=== PATIENT | male | born 1945 | race Caucasian/White ===

== ENCOUNTER 2020-08-06 12:01 | Outpatient (CLI) | payer MEDICARE, OTHER, SELFPAY ==
--- NOTE | 2020-08-06 12:37 | AMB.MCA ---
Patient Information Referred by: Reji Symptom onset date: 07/31/20 COVID 19 common symptoms: positive fatigue COVID 19 other sytmptoms: negative chest pressure, chest pain, pleuritic pain, requiring oxygen, requiring more oxygen, respiratory distress, cyanosis, lethargy, confusion, new neurological complaints or other concerning symptoms Severity: mild and moderate Treatment prior to arrival: none [facility] COVID test results: No Data to Display outside results available, scanned Criteria/Plan Inclusion/Exclusion Criteria weight >/= 40kg, + direct test </= 10 days ago and symptom onset </= 10 days ago age >/= 65 not requiring hospitalization, not requiring oxygen (if not chronically on oxygen) and no increase oxygen requirement (if chronically on oxygen) Patient education patient/caregiver received/reviewed fact sheet, Emergency Use Authorization/unapproved drug status discussed with patient/caregiver, alternatives to this treatment discussed with patient/caregiver, risks and benefits of medication reviewed with patient/caregiver, patient/caregiver given opportunity for questions, which were answered and patient/caregiver consents to receiving Monoclonal Antibody Treatment Plan for treatment Meets criteria for Monoclonal Antibody infusion Ordering Monoclonal Antibody infusion for today
[2020-08-06 12:39] VITALS: BP 149/92; PULSE 68; RESP 18; TEMP 36.9; O2SAT 99
[2020-08-06 12:40] VITALS: BMI 25.8
[2020-08-06 13:40] VITALS: BP 132/82; PULSE 62; RESP 16; O2SAT 62
[2020-08-06 14:45] VITALS: BP 131/86; PULSE 67; RESP 16; O2SAT 97
[2020-08-06 15:48] VITALS: BP 156/86; PULSE 67; RESP 17; TEMP 36.4; O2SAT 97
[2020-08-06 15:51] VITALS: BP 156/86; PULSE 67; RESP 17; TEMP 36.4; O2SAT 97
--- NOTE | 2020-08-12 13:35 | DCPLANNER ---
Addendum entered by Rachel Montanez 08/18/20 13:54: account manager forest service called to check on patient after getting the BAM infusion. Patients daughter stated that patient is doing just fine, no symptoms. Has not been admitted to hospital anywhere. Original Note: account manager forest service had message that patient received the BAM infusion. account manager forest service called and spoke with patients daughter. Patients daughter stated that patient did not have any symptoms before, was tested because had tested positive, no symptoms before and none after the infusion. Patient is doing good.
== END 2020-08-06 15:53 | disposition home or self-care (01) ==
PROVIDERS: Visit Provider Nurse Practitioner Family
DX: U07.1 COVID-19 (principal)
CPT/HCPCS: 96365; J7050

== ENCOUNTER → 2022-08-15 13:36 | Outpatient (BNVA) | payer MEDICARE, OTHER, SELFPAY | PROVIDERS: Visit Provider Student in an Organized Health Care Education/Training Program | DX: M25.562 Pain in left knee (principal); M17.12 Unilateral primary osteoarthritis, left knee | CPT/HCPCS: 20610; 73560; 73565; 99204; J3301 ==

== ENCOUNTER → 2023-08-08 08:28 | Outpatient (BNVA) | payer MEDICARE, OTHER, SELFPAY | PROVIDERS: PCP Family Medicine; Visit Provider Student in an Organized Health Care Education/Training Program | DX: M17.0 Bilateral primary osteoarthritis of knee; D16.21 Benign neoplasm of long bones of right lower limb | CPT/HCPCS: 73560; 73565; 99214; J3301 ==

== ENCOUNTER → 2023-09-06 08:56 | Outpatient (BNVA) | payer MEDICARE, OTHER, SELFPAY | PROVIDERS: PCP Family Medicine; Referring Provider Family Medicine; Visit Provider Psychiatry & Neurology Neurology | DX: Z86.73 Personal history of transient ischemic attack (TIA), and cerebral infarction without residual deficits (principal); R55 Syncope and collapse; R29.818 Other symptoms and signs involving the nervous system | CPT/HCPCS: 99203 ==

== ENCOUNTER 2023-09-08 12:40 | Outpatient (CLI) | payer MEDICARE, OTHER, SELFPAY ==
--- NOTE | 2023-09-08 13:00 | USCV_ITS ---
Dakota Shaikh Age: 78 Gender: M : 1945 Exam Date: 09/08/2023 13:18 Ordering Phys: Cooper Panchal MD Technologist: CT Exam Location: [facility] [place]_ Indication: Risk Factors: Previous Vascular Surgery: Right Brachial BP: / Left Brachial BP: / Right Left Velocity (cm/s) Spectral Plaque Velocity (cm/s) Spectral Plaque Syst/Diast Broadening Syst/Diast Broadening 96.60/ 18.10 Prox CCA 109.00/ 19.40 78.30/ 16.20 Mid CCA 92.20 / 17.70 78.30/ 18.10 Distal CCA 105.10/ 17.70 47.80/ 12.10 Prox ICA 71.10 / 5.30 65.60/ 16.90 Mid ICA 57.40 / 6.70 69.10/ 16.80 Distal ICA 57.40 / 13.30 96.60 ECA 81.90 0.71 ICA/CCA 0.60 Antegrade Vertebral Antegrade 46.10/ 9.10 cm/s 64.80/ 8.50 cm/s Tri Subclavian Tri FINDINGS Comparison: none available. No significant elevation of systolic or diastolic velocities. Waveforms are normal. Mild plaque at the bifurcations, surface is irregular. Antegrade vertebral arteries. CONCLUSIONS Bilateral ICA stenosis less than 50%. Mild carotid atherosclerosis. Dr. Yasimn Espinal DO (Electronically Signed) Final Date: 09 September 2023 08:27 S
== END 2023-09-08 12:41 | disposition home or self-care (01) ==
LOC: RAD 12:40
PROVIDERS: PCP Family Medicine; Visit Provider Psychiatry & Neurology Neurology
DX: R42 Dizziness and giddiness (principal); R55 Syncope and collapse
CPT/HCPCS: 93880

== ENCOUNTER 2023-10-09 14:39 | Outpatient (CLI) | payer MEDICARE, OTHER, SELFPAY | END 2023-10-09 14:40 | disposition home or self-care (01) | LOC: RAD 14:41 | PROVIDERS: PCP Family Medicine; Visit Provider Psychiatry & Neurology Neurology | DX: R55 Syncope and collapse (principal); R29.818 Other symptoms and signs involving the nervous system; G62.89 Other specified polyneuropathies; Z86.73 Personal history of transient ischemic attack (TIA), and cerebral infarction without residual deficits | CPT/HCPCS: 95812 ==

== ENCOUNTER 2023-10-29 18:17 | Emergency (ER) | payer MEDICARE, OTHER, SELFPAY ==
[2023-10-29 18:18] VITALS: BP 133/76; PULSE 58; RESP 18; TEMP 37.1; O2SAT 98; BMI 32.1
[2023-10-29 18:26] LABS: Glucose Point of Care 142 mg/dL (70-110)
--- NOTE | 2023-10-29 18:49 | CTR_ITS ---
PROCEDURE INFORMATION: Exam: CT Head Without Contrast Exam date and time: 10/29/2023 7:24 PM Age: 78 years old Clinical indication: Stroke-like symptoms; Ataxia; Additional info: Sudden onset of inability to walk with ataxia. History of posterior circulation stroke. TECHNIQUE: Imaging protocol: Computed tomography of the head without contrast. Radiation optimization: All CT scans at this facility use at least one of these dose optimization techniques: automated exposure control; mA and/or kV adjustment per patient size (includes targeted exams where dose is matched to clinical indication); or iterative reconstruction. Other technique: STROKE PROTOCOL was implemented. COMPARISON: No relevant prior studies available. RADIATION DOSE METRICS: Total DLP (mGy-cm): 1045.55 FINDINGS: Brain: No focal hemorrhage or midline shift is identified. The ventricles and parenchyma show moderate atrophy and chronic bicerebral white matter ischemic change. A few scattered old lacunes are likely. Cerebral ventricles: No ventriculomegaly or evidence of hydrocephalus. Paranasal sinuses: The partially assessed sinuses are grossly clear. Mastoid air cells: Visualized mastoid air cells are well aerated. Bones/joints: No displaced skull fracture is noted. Soft tissues: Unremarkable. Vasculature: Diffuse vascular calcifications are present. CT/CT head thrombolytic [id number] IMPRESSION: 1. No acute intracranial hemorrhage. 2. Moderate age-related changes. 3. CTAs pending. ASSESSMENT: ASPECTS (Kayla Stroke Program Early CT Score) is 10.
--- NOTE | 2023-10-29 18:49 | CTR_ITS ---
PROCEDURE INFORMATION: Exam: CTA Head With Contrast, Arteriography Exam date and time: 10/29/2023 7:28 PM Age: 78 years old Clinical indication: Stroke-like symptoms; Ataxia TECHNIQUE: Imaging protocol: Computed tomographic angiography of the head with contrast. Exam focused on the arteries. 3D rendering (Not supervised by radiologist): MIP and/or 3D reconstructed images were created by the technologist. Radiation optimization: All CT scans at this facility use at least one of these dose optimization techniques: automated exposure control; mA and/or kV adjustment per patient size (includes targeted exams where dose is matched to clinical indication); or iterative reconstruction. Contrast material: OMNI 350; Contrast volume: 100 ml; Contrast route: INTRAVENOUS (IV); COMPARISON: CT head thrombolytic [id number] 10/29/2023 7:24 PM RADIATION DOSE METRICS: Total DLP (mGy-cm): 568.62 FINDINGS: ANTERIOR CIRCULATION: Right internal carotid artery: Intracranial segment is patent with no significant stenosis. No aneurysm. Mild cavernous calcified plaque. Right middle cerebral artery: No occlusion or significant stenosis. No aneurysm. Right anterior cerebral artery: No occlusion or significant stenosis. No aneurysm. Left internal carotid artery: Intracranial segment is patent with no significant stenosis. No aneurysm. Mild cavernous calcified plaque. Left middle cerebral artery: No occlusion or significant stenosis. No aneurysm. Left anterior cerebral artery: No occlusion or significant stenosis. No aneurysm. POSTERIOR CIRCULATION: Right vertebral artery: No occlusion or significant stenosis. No aneurysm. Left vertebral artery: No occlusion or significant stenosis. No aneurysm. Basilar artery: No occlusion or significant stenosis. No aneurysm. Right posterior cerebral artery: No occlusion or significant stenosis. No aneurysm. Left posterior cerebral artery: No occlusion or significant stenosis. No aneurysm. Brain: No focal hemorrhage or midline shift identified. Moderate age-related change. Cerebral ventricles: No evidence of ventriculomegaly or hydrocephalus. The ventricles seem age-appropriate. Bones/joints: Unremarkable. No acute fracture. Soft tissues: Unremarkable. PROCEDURE INFORMATION: Exam: CTA Neck With Contrast Exam date and time: 10/29/2023 7:28 PM Age: 78 years old Clinical indication: Stroke-like symptoms; Ataxia TECHNIQUE: Imaging protocol: Computed tomographic angiography of the neck with contrast. Exam focused on the cervical segments of the vasculature. 3D rendering (Not supervised by radiologist): MIP and/or 3D reconstructed images were created by the technologist. Radiation optimization: All CT scans at this facility use at least one of these dose optimization techniques: automated exposure control; mA and/or kV adjustment per patient size (includes targeted exams where dose is matched to clinical indication); or iterative reconstruction. Contrast material: OMNI 350; Contrast volume: 100 ml; Contrast route: INTRAVENOUS (IV); COMPARISON: CT head thrombolytic [id number] 10/29/2023 7:24 PM RADIATION DOSE METRICS: Total DLP (mGy-cm): 568.62 FINDINGS: Right common carotid artery: No stenosis. No dissection or occlusion. Right internal carotid artery: No stenosis of the extracranial segment. No dissection or occlusion. Right external carotid artery: No occlusion or high-grade stenosis identififed. Left common carotid artery: No stenosis. No dissection or occlusion. Left internal carotid artery: No stenosis of the extracranial segment. No dissection or occlusion. Left external carotid artery: No occlusion or high-grade stenosis identififed. Right vertebral artery: No stenosis. No dissection or occlusion. Left vertebral artery: No stenosis. No dissection or occlusion. Soft tissues: No significant soft tissue swelling or other acute finding noted. Bones/joints: No acute fracture. Moderate diffuse DJD. Other findings: Advanced diffuse vascular calcification noted. CT/CT angio headneck* [id number] IMPRESSION: No large vessel stenosis or occlusion. IMPRESSION: No significant stenosis or occlusion. REFERENCES: NASCET CRITERIA. The degree of stenosis in the cervical segment of the internal carotid artery is based on NASCET criteria. Normal is no stenosis. Mild is less than 50% stenosis. Moderate is 50-69% stenosis. Severe is 70% to 99% stenosis. Total occlusion is no detectable patent lumen.
[2023-10-29 19:22] LABS: Add Urine Microscopic? NO; Charge for UA Resulting for Rev
[2023-10-29] MEDS: iohexol 350 mg/mL 500 mL Btl (per mL) IV (19:26)
--- NOTE | 2023-10-29 19:28 | ED_ITS ---
HPI - Fall 2 General: Chief Complaint: Fall Stated Complaint: Possible Stroke Time Seen by Provider: 10/29/23 18:38 History of Present Illness: 78-year-old gentleman with a history of posterior circulation stroke. Sometime around 530 this evening, he had a short duration of significant ataxia while walking around his yard outside. So much so that he came back to the house, and fell into his recliner. He had no noted language defects, visual problems, unilateral weakness, sensation changes, or other symptoms. Symptoms seem to resolve on their own now. His gait is back to normal. This was concerning, because of his prior history of posterior circulation stroke. Associated symptoms-after fall: Reports headache(s) (Mild); Denies abdominal pain, chest pain or confusion Review of Systems 2 Const: Denies: fever(s), chills or body aches Eyes: Denies: change in vision Card: Denies: chest pain or palpitations Resp: Denies: dyspnea, productive cough, non-productive cough or wheezing GI: Denies: abdominal pain, nausea, vomiting, diarrhea or hematochezia Skin/Breast: Denies: rash Neuro: Reports: headache(s) (Mild); Denies: dizziness or confusion PFSH ED 2 PFSH: Medical History Left knee DJD Social History Smoking and tobacco/nicotine status: never used tobacco/nicotine Alcohol intake: never Substance/Drug Use: never Physical Exam 2 Const: COMMON NORMALS: no acute distress and alert GENERAL APPEARANCE: c ooperative; not ill appearing and not frail appearing HENMT: COMMON NORMALS: normocephalic, atraumatic and Normal external nose present HEAD & SCALP: normocephalic and atraumatic FACE & SINUS: normal facial exam and face symmetric NOSE: Normal external nose present Eye: COMMON NORMALS: Equal, round and reactive pupils present and EOMs intact bilaterally PUPIL: Yes Equal, round and reactive pupils present Neck/C-Spine: GENERAL: Yes trachea midline Chest: CHEST: Yes Symmetrical chest wall rise Resp: COMMON NORMALS: normal respiratory effort, No retractions, No use of accessory muscles and clear to auscultation bilaterally AUSCULTATION: clear to auscultation bilaterally Cardio: COMMON NORMALS: regular rate and regular rhythm RATE: regular rate RHYTHM: regular rhythm GI: COMMON NORMALS: Normal to inspection, nondistended, normoactive bowel sounds present Extremity: COMMON NORMALS: no pedal edema Neuro: KARLY COMA SCALE: document GCS findings [place] coma scale eye opening: Spontaneous Karly coma scale verbal response: Orientated Karly coma scale motor response: Obey commands [place] coma scale total score: 15 COMMON NORMALS: CN's II-XII intact bilaterally, moves all extremities and no focal motor deficits SENSORIUM/ORIENTATION: Yes alert COORDINATION/BALANCE: f [id number] test normal, tmjo-ly-brwh test normal, No sways with eyes open and Romberg test negative SPEECH: speech normal GAIT: Yes Normal gait present and No Ataxic gait present SENSORY EXAM: Yes extremities (intact) MOTOR EXAM: Pronator motor function not present COORDINATION: [id number]-ml-[id number] test normal and [id number]-dj-[id number] test normal Psych: COMMON NORMALS: speech normal SPEECH: Yes normal speech Skin: COMMON NORMALS: no rashes or lesions noted GENERAL SKIN EXAM: no rashes or lesions noted Course 2 Vital Signs: Vital signs: Vital Signs Temperature 98.7 F 10/29/23 18:18 Pulse Rate 58 L 10/29/23 21:29 Respiratory Rate 12 10/29/23 21:29 Blood Pressure 130/78 10/29/23 21:29 Pulse Oximetry 95 10/29/23 21:29 Oxygen Delivery Me thod Room Air 10/29/23 20:13 MDM - Fall Medical Decision Making 78-year-old male with a short duration of ataxia at home. It is resolved now. The patient can walk. His Romberg is negative. Head CT is negative. CTA does not show any significant stenosis or occlusion. CBC is normal. BMP is not remarkable. Urinalysis is not remarkable. No other causes identified. Given his specific symptoms, and quick return to baseline, this is likely a TIA. He wishes to go home. He does see a neurologist locally. They have been talking about doing an MRI on his brain. I think this is a great idea as an outpatient. They know to return for any new or worsening symptoms. He is already on Plavix and a statin. They will call neurology tomorrow and see if any treatment changes need to be made. Lab Data 10/29/23 19:15 10/29/23 19:[address] 10/29/23 18:49 IMPRESSION: 1. No acute intracranial hemorrhage. 2. Moderate age-related changes. 3. CTAs pending. ASSESSMENT: ASPECTS (Kayla Stroke Program Early CT Score) is 10. Head/Neck CTA 10/29/23 18:49 IMPRESSION: No large vessel stenosis or occlusion. IMPRESSION: No significant stenosis or occlusion. REFERENCES: NASCET CRITERIA. The degree of stenosis in the cervical segment of the internal carotid artery is based on NASCET criteria. Normal is no stenosis. Mild is less than 50% stenosis. Moderate is 50-69% stenosis. Severe is 70% to 99% stenosis. Total occlusion is no detectable patent lumen. Laboratory Results WBC 7.94 10^3/uL (3.29-11.43) 10/29/23 19:15 RBC 4.66 10^6/uL (3.85-5.65) 10/29/23 19:15 Hgb 14.80 g/dL (11.27-16.99) 10/29/23 19:15 Hct 42.9 % (37-53) 10/29/23 19:15 MCV 92.1 fl (82-101) 10/29/23 19:15 MCH 31.8 pg (27-33) 10/29/23 19:15 MCHC 34.5 g/dL (30-55) 10/29/23 19:15 RDW 14.4 % (12.1-15.1) 10/29/23 19:15 Plt Count 164 10^3/cmm (157-399) 10/29/23 19:15 MPV 9.6 fL (7.4-10.4) 10/29/23 19:15 Neut % (Auto) 65.5 % 10/29/23 19:15 Lymph % (Auto) 24.6 % 10/29/23 19:15 [place] % (Auto) 8.1 % 10/29/23 19:15 Eos % (Auto) 0.9 % 10/29/23 19:15 Baso % (Auto) 0.5 % 10/29/23 19:15 Neut # (Auto) 5.21 10^3/uL (1.8-7.7) 10/29/23 19:15 Lymph # (Auto) 2.0 10^3/uL (0.8-4.8) 10/29/23 19:15 [place] # (Auto) 0.6 10^3/uL (0.2-0.9) 10/29/23 19:15 Eos # (Auto) 0.1 10^3/uL (0.0-0.8) 10/29/23 19:15 Baso # (Auto) 0.0 10^3/uL (0.0-0.1) 10/29/23 19:15 Nucleated RBC % (auto) 0 % 10/29/23 19:15 Nucleated RBCs # 0.0 /100WBC 10/29/23 19:15 PT 13.40 SECONDS (12.1-14.9) 10/29/23 19:15 INR 0.99 (0.8-1.2) 10/29/23 19:15 APTT 22.7 SECONDS (23.9-36.7) L 10/29/23 19:15 Sodium 140 mmol/L (136-145) 10/29/23 19:15 Potassium 4.1 mmol/L (3.5-5.1) 10/29/23 19:15 Chloride 103 mmol/L (98-107) 10/29/23 19:15 Carbon Dioxide 25 mmol/L (22-29) 10/29/23 19:15 Anion Gap 16.1 (5-19) 10/29/23 19:15 BUN 22 mg/dL (8-23) 10/29/23 19:15 Creatinine 0.9 mg/dL (0.7-1.2) 10/29/23 19:15 GFR Calculation Not Reportable 10/29/23 19:15 Glucose 145 mg/dL (65-115) H 10/29/23 19:15 POC Glucose 142 mg/dL (70-110) H 10/29/23 18:24 Calculated Osmolality 296 mOsm/kg (285-295) H 10/29/23 19:15 Calcium 9.5 mg/dL (8.5-10.5) 10/29/23 19:15 Total Bilirubin 1.0 mg/dL (0.15-1.2) 10/29/23 19:15 AST 26 U/L (0-40) 10/29/23 19:15 ALT 32 U/L (0-41) 10/29/23 19:15 Alkaline Phosphatase 43 U/L (40-130) 10/29/23 19:15 Total Protein 6.9 g/dL (6.6-8.7) 10/29/23 19:15 Albumin 4.7 g/dL (3.5-5.2) 10/29/23 19:15 Globulin 2.2 g/dL (1.3-4.6) 10/29/23 19:15 Urine Color Dark yellow (Yellow) 10/29/23 19:15 Urine Appearance Clear (CLEAR) 10/29/23 19:15 Urine pH 5 (5-7) 10/29/23 19:15 Ur Specific [place] 1.020 (1.005-1.030) 10/29/23 19:15 Urine Protein Neg (Negative) 10/29/23 19:15 Urine Glucose (UA) 4+ (Normal) H 10/29/23 19:15 Urine Ketones Negative (Negative) 10/29/23 19:15 Urine Blood Neg (Negative) 10/29/23 19:15 Urine Nitrate Negative (Negative) 10/29/23 19:15 Urine Bilirubin Neg (Negative) 10/29/23 19:15 Urine Urobilinogen Neg mg/dL (Negative) 10/29/23 19:15 Ur Leukocyte Esterase Negative (Negative) 10/29/23 19:15 Urine Opiates Screen Negative ng/mL (Negative) 10/29/23 19:15 Ur Barbiturates Screen Negative ng/mL (Negative) 10/29/23 19:15 Ur Phencyclidine Scrn Negative ng/mL (Negative) 10/29/23 19:15 Ur Amphetamines Screen Negative ng/mL (Negative) 10/29/23 19:15 U Benzodiazepines Scrn Negative ng/mL (Negative) 10/29/23 19:15 Urine Cocaine Screen Negative ng/mL (Negative) 10/29/23 19:15 U Marijuana (THC) Screen Negative ng/mL (Negative) 10/29/23 19:15 All radiology interpretation(s) finalized by discharge Discharge Plan Discharge Patient Disposition: Home Clinical Impression: Transient ischemic attack Condition: Stable Prescriptions: No Action atorvastatin 40 mg tablet 40 mg PO DAILY Jardiance 10 mg tablet 10 mg PO DAILY aspirin 81 mg Tablet,Delayed Release (Dr/Ec) 81 mg PO DAILY tamsulosin 0.4 mg Capsule 0.4 mg PO DAILY hydrochlorothiazide 25 mg Tablet 25 mg PO DAILY olmesartan 40 mg Tablet 40 mg PO DAILY duloxetine 20 mg Capsule,Delayed Release(Dr/Ec) 20 mg PO BID metoprolol succinate 100 mg Capsule,Sprinkle,Er 24hr 100 mg PO DAILY vitamin T01-[id number] acid 1 tab PO DAILY Discharge Orders: Discharge ED (Routine); Ordered 10/29/23 Ordered By: Vito Claros Referrals: Cooper Panchal MD [Physician] - 4-7 days Derrek Lafleur DO [Primary Care Provider] - Patient Instructions: Transient Ischemic Attack (ED), Opioid Safety, Pain Management Activity Restrictions/Additional Instructions: Return for any repeated episodes of trouble walking, weakness, language problems, vision problems, any other concerning symptoms. Call your doctor tomorrow, let them know you were seen here with your symptoms, and you were diagnosed with a TIA. They may want to change your medication, or may make further recommendations. Coding Level of Care Code ED Business Associate for Mandeep Carballo NIH stroke score NIHSS Level Of Consciousness - 1a: 0 Level Of Consciousness Questions - 1b: Both Correct Level Of Consciousness Commands - 1c: Both Correct Best Gaze - 2: Normal Visual Contreras - 3: No Visual Loss Facial Palsy - 4: Normal Motor Arm Right - 5: No Drift Motor Arm Left - 5: No Drift Motor Leg Right - 6: No Drift Motor Leg Left - 6: No Drift Limb Ataxia - 7: Absent Sensory - 8: Normal Best Language - 9: No Aphasia Dysarthia - 10: Normal Extinction And Inattention - 11: 0 Score Total Score: 0
[2023-10-29 19:34] LABS: Basophils % 0.5 %; Eosinophils # 0.1 10^3/uL (0.0-0.8); Eosinophils % 0.9 %; Hematocrit 42.9 % (37-53); Lymphocytes % 24.6 %; Mean Corpuscular HGB Conc 34.5 g/dL (30-55); Mean Corpuscular Hemoglobin 31.8 pg (27-33); Mean Corpuscular Volume 92.1 fl (82-101); Mean Platelet Volume 9.6 fL (7.4-10.4); Monocytes # 0.6 10^3/uL (0.2-0.9); Monocytes % 8.1 %; Neutrophils # 5.21 10^3/uL (1.8-7.7); Neutrophils % 65.5 %; Nucleated Red Blood Cells % 0 %; Platelet Count 164 10^3/cmm (157-399); Red Blood Count 4.66 10^6/uL (3.85-5.65); Red Cell Distribution Width 14.4 % (12.1-15.1); White Blood Count 7.94 10^3/uL (3.29-11.43)
[2023-10-29 19:41] LABS: INR 0.99 (0.8-1.2); Partial Thromboplastin Time 22.7 SECONDS (23.9-36.7)
[2023-10-29 19:52] LABS: Amphetamines Screen Urine Negative (Negative); Barbiturates Screen Urine Negative (Negative); Benzodiazepines Screen Urine Negative (Negative); Bilirubin Urine Neg (Negative); Blood Urine Neg (Negative); Cocaine Screen Urine Negative (Negative); Glucose Urine UA 4+ (Normal); Ketones Urine Negative (Negative); Leukocyte Esterase Urine Negative (Negative); Nitrate Urine Negative (Negative); Opiate Screen Urine Negative (Negative); PCP Screen Urine Negative (Negative); Protein Urine Neg (Negative); THC Screen Urine Negative (Negative); Urine Appearance Clear (CLEAR); Urine Color Dark Yellow (Yellow); Urobilinogen Urine Neg (Negative); pH Urine 5 (5-7)
[2023-10-29 20:13] VITALS: PULSE 62; RESP 13; O2SAT 94
[2023-10-29 20:47] LABS: Alanine Aminotransferase 32 U/L (0-41); Albumin Level 4.7 g/dL (3.5-5.2); Alkaline Phosphatase 43 U/L (40-130); Anion Gap 16.1 (5-19); Aspartate Amino Transferase 26 U/L (0-40); Blood Urea Nitrogen 22 mg/dL (8-23); Calcium 9.5 mg/dL (8.5-10.5); Carbon Dioxide 25 mmol/L (22-29); Chloride 103 mmol/L (98-107); Creatinine Clr Calc Pharmacy 90.5881; Globulin 2.2 g/dL (1.3-4.6); Glucose 145 mg/dL (65-115); Osmolality Calculated 296 mOsm/kg (285-295); Potassium 4.1 mmol/L (3.5-5.1); Sodium 140 mmol/L (136-145); Total Protein 6.9 g/dL (6.6-8.7)
[2023-10-29 21:29] VITALS: BP 130/78; PULSE 58; RESP 12; O2SAT 95
== END 2023-10-29 21:31 | disposition home or self-care (01) ==
PROVIDERS: Emergency Provider Emergency Medicine; PCP Family Medicine
DX: G45.9 Transient cerebral ischemic attack, unspecified (principal); Z79.82 Long term (current) use of aspirin
CPT/HCPCS: 36416; 70450; 70496; 70498; 80053; 80306; 81003; 82962; 85025; 85610; 85730; 99285; Q9967

== ENCOUNTER 2023-11-10 16:28 | Outpatient (CLI) | payer MEDICARE, OTHER, SELFPAY ==
--- NOTE | 2023-11-10 16:45 | MR_ITS ---
WS: [id number] MRI BRAIN WITHOUT CONTRAST HISTORY: R55 - Syncope and collapse COMPARISON: 09/14/2023, CT head 10/29/2023 TECHNIQUE: Diffusion imaging, multiplanar T1, T2 and FLAIR imaging obtained. No acute ischemic event. Diffusion imaging is normal. No hemorrhage. Moderate symmetric volume loss in the cerebellum and cerebrum. There is moderate to severe patchy T2 FLAIR signal hyperintensity surrounding the ventricles and extending into the white matter. Consisten t with advanced small vessel ischemic disease. Mild to moderate bilateral hippocampal atrophy. Ventricles and extra-axial spaces are normal. No inferior displacement of cerebellar tonsils. The sella turcica and pituitary gland are unremarkabl e. Dural venous sinuses and [place] of [place] demonstrate no abnormality on this unenhanced studies. Paranasal sinuses: Clear. Mastoid air cells: Normal. Calvarium and scalp: Intact. IMPRESSION: 1. No acute infarct or ischemic event. 2. Advanced small vessel chronic microangiopathic disease. 3. No hemorrhage. 4. Moderate atrophy.
== END 2023-11-10 16:29 | disposition home or self-care (01) ==
LOC: RAD 16:30
PROVIDERS: PCP Family Medicine; Visit Provider Psychiatry & Neurology Neurology
DX: R55 Syncope and collapse (principal); G31.89 Other specified degenerative diseases of nervous system
CPT/HCPCS: 70551

== ENCOUNTER → 2023-11-29 12:48 | Outpatient (BNVA) | payer MEDICARE, OTHER, SELFPAY | PROVIDERS: PCP Family Medicine; Visit Provider Psychiatry & Neurology Neurology | DX: Z86.73 Personal history of transient ischemic attack (TIA), and cerebral infarction without residual deficits (principal); R55 Syncope and collapse; R29.818 Other symptoms and signs involving the nervous system | CPT/HCPCS: 99212 ==

== ENCOUNTER → 2024-04-29 15:24 | Outpatient (BNVA) | payer MEDICARE, OTHER, SELFPAY | PROVIDERS: PCP Family Medicine; Visit Provider Psychiatry & Neurology Neurology | DX: I63.9 Cerebral infarction, unspecified (principal); R55 Syncope and collapse; R29.818 Other symptoms and signs involving the nervous system; Z86.73 Personal history of transient ischemic attack (TIA), and cerebral infarction without residual deficits; Z79.01 Long term (current) use of anticoagulants; Z79.02 Long term (current) use of antithrombotics/antiplatelets | CPT/HCPCS: 99212 ==

== ENCOUNTER → 2024-06-13 07:41 | Outpatient (BNVA) | payer MEDICARE, OTHER, SELFPAY | PROVIDERS: PCP Family Medicine; Visit Provider Physician Assistant | DX: M17.0 Bilateral primary osteoarthritis of knee (principal) | CPT/HCPCS: 20610; 99213; J3301 ==

== ENCOUNTER → 2025-07-22 10:17 | Outpatient (BNVA) | payer MEDICARE, OTHER, SELFPAY | PROVIDERS: PCP Family Medicine; Visit Provider Student in an Organized Health Care Education/Training Program | DX: M17.0 Bilateral primary osteoarthritis of knee (principal); D16.20 Benign neoplasm of long bones of unspecified lower limb | CPT/HCPCS: 20610; 73560; 73565; 99213; J3301; J9999 ==